=== PATIENT | male | born 1995 | race Caucasian/White ===

== ENCOUNTER → 2018-12-28 | Outpatient (CLI) | payer OTHER ==
[2018-12-28 09:03] LABS: PLATELET COUNT, AUTOMATED 163 K/uL (150-450)
== END ==
LOC: LAB 08:26
DX: E29.1 Testicular hypofunction (principal); D35.2 Benign neoplasm of pituitary gland
CPT/HCPCS: 36415; 82024; 82040; 82247; 82310; 82374; 82435; 82533; 82565; 82728; 82947; 84075; 84132; 84155; 84270; 84295; 84305; 84403; 84439; 84443; 84450; 84460; 84520; 85025